=== PATIENT | male | born 2000 | race Caucasian/White ===

== ENCOUNTER 2021-10-05 14:02 | Emergency (ER) | payer SELFPAY ==
--- NOTE | 2021-10-05 15:57 | XRay Report ---
Lumbar spine-2 views INDICATION: FALL. COMPARISON: None. IMPRESSION: Minimal thoracolumbar levoscoliosis with normal AP alignment. No significant discogenic DJD or facet arthropathy. No acute osseous or soft tissue abnormality. Signer Name: Andrea Kathleen MD Signed: 10/05/2021 3:53 PM Workstation Name: [id number]
--- NOTE | 2021-10-05 15:59 | XRay Report ---
Left knee-2 views INDICATION: FALL. COMPARISON: None available. IMPRESSION: No acute osseous abnormality. Normal alignment. No significant DJD. Soft tissues are u nremarkable. Signer Name: Andrea Kathleen MD Signed: 10/05/2021 3:55 PM Workstation Name: [id number]
--- NOTE | 2021-10-05 16:01 | XRay Report ---
Left elbow-3 views INDICATION: FALL. COMPARISON: None available. IMPRESSION: No acute osseous abnormality. Normal alignment. No significant DJD. Soft tissues are u nremarkable. Signer Name: Andrea Kathleen MD Signed: 10/05/2021 3:56 PM Workstation Name: [id number]
[2021-10-05 16:03] VITALS: BP 127/80
--- NOTE | 2021-10-05 20:48 | Emergency Department Report ---
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 C/O L ELBOW, L KNE, LOWER BACK. -LOC. DENIES NECK/ABD PAIN. MD Complaint: fall -: Sudden, hour(s) Fall From: standing When Fall Occurred: unsure Fall Witnessed: no Place Fall Occurred: work Loss of Consciousness: none Prolonged Down Time?: no Location: back Location - Extremities: Left: Elbow, Knee Severity: mild Severity scale (0 -10): 2 Quality: dull Context: tripped/slipped - Related Data Previous Rx's Medication Instructions Recorded Last Taken Type Ibuprofen [Motrin] 800 mg PO Q8HR PRN #14 tablet 10/05/21 Unknown Rx Allergies Allergy/AdvReac Type Severity Reaction Status Date / Time No Known Allergies Allergy Verified 10/05/21 14:44 ED Review of Systems ROS: Stated complaint: FALL/LEFT ELBOW/KNEE PAIN Other details as noted in HPI Comment: Unobtainable due to pts medical conditions ED Past Medical Hx - Medications Home Medications: Home Medications Medication Instructions Recorded Confirmed Last Taken Type Ibuprofen [Motrin] 800 mg PO Q8HR PRN #14 tablet 10/05/21 Unknown Rx ED Physical Exam - General Limitations: No Limitations General appearance: alert, in no apparent distress - Head Head exam: Present: atraumatic, normocephalic - Eye Eye exam: Present: normal appearance - ENT ENT exam: Present: mucous membranes moist - Neck Neck exam: Present: normal inspection - Respiratory Respiratory exam: Present: normal lung sounds bilaterally. Absent: respiratory distress - Cardiovascular Cardiovascular Exam: Present: regular rate, normal rhythm. Absent: systolic murmur, diastolic murmur, rubs, gallop - GI/Abdominal GI/Abdominal exam: Present: soft, normal bowel sounds - Rectal Rectal exam: Present: deferred - Extremities Exam Extremities exam: Present: normal inspection - Expanded Upper Extremity Exam Left Elbow exam: Present: tenderness - Back Exam Back exam: Present: normal inspection - Neurological Exam Neurological exam: Present: alert, oriented X3 - Psychiatric Psychiatric exam: Present: normal affect, normal mood - Skin Skin exam: Present: warm, dry, intact, normal color. Absent: rash ED Course Vital Signs 10/05/21 10/05/21 14:50 16:02 Temperature 98.4 F 97.8 F Pulse Rate 65 64 Respiratory 14 18 Rate Blood Pressure 127/80 Blood Pressure 127/85 [Left] O2 Sat by Pulse 97 100 Oximetry Critical care attestation.: If time is entered above; I have spent that time in minutes in the direct care of this critically ill patient, excluding procedure time. ED Disposition Clinical Impression: Fall, Back pain, Left elbow contusion, Left knee sprain Disposition: HOME / SELF CARE / HOMELESS Is pt being admited?: No Does the pt Need Aspirin: No Condition: Stable Instructions: How to Use a Knee Brace, Knee Sprain, Adult, Back Injury Prevention, Knee Sprain, Adult, [id number] Prescriptions: Ibuprofen [Motrin] 800 mg PO Q8HR PRN #14 tablet PRN Reason: Pain, Moderate (4-6) Referrals: PRIMARY CARE, [Primary Care Provider] - 3-5 Days
== END 2021-10-05 21:20 | disposition home or self-care (01) ==
LOC: ED 14:02
DX: S83.92XA Sprain of unspecified site of left knee, initial encounter (principal); S50.02XA Contusion of left elbow, initial encounter; M54.9 Dorsalgia, unspecified; W19.XXXA Unspecified fall, initial encounter; Y93.89 Activity, other specified; Y92.89 Other specified places as the place of occurrence of the external cause; Y99.8 Other external cause status
CPT/HCPCS: 72100; 99283